=== PATIENT | female | born 1950 | race Caucasian/White ===

== ENCOUNTER → 2020-05-23 15:38 | Outpatient (CLI) | payer OTHER, SELFPAY ==
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
--- NOTE | 2020-05-23 | DI.RAD.S_ITS ---
PROCEDURE: XR CERVICAL SPINE 2V OR 3V INDICATIONS: NECK PAIN TECHNIQUE: 3 view(s) of the cervical spine were acquired. COMPARISON: None. FINDINGS: Bones: No fractures or dislocations to the C7-T1 level. The lateral masses of C1 appear intact on the odontoid view. No suspicious bony lesions. Severe degenerative changes are present at C4-5, C5-6, and C6-7 including intervertebral disc space narrowing and osteophytosis. Soft tissues: No prevertebral soft tissue swelling. There are likely carotid artery calcifications which are incompletely characterized. IMPRESSION: 1. Severe degenerative change of the mid and lower cervical spine. No compression deformities. 2. Probable carotid artery calcification. Carotid ultrasound could be used to further characterize findings. Dictated by: Yahaira Cha M.D. on 05/23/2020 at 16:53 Approved by: Yahaira Cha M.D. on 05/23/2020 at 16:54
== END ==
PROVIDERS: PCP Nurse Practitioner; Referring Provider Student in an Organized Health Care Education/Training Program; Visit Provider Student in an Organized Health Care Education/Training Program
DX: M54.2 Cervicalgia (principal); M54.9 Dorsalgia, unspecified; M47.812 Spondylosis without myelopathy or radiculopathy, cervical region; M47.816 Spondylosis without myelopathy or radiculopathy, lumbar region; M47.817 Spondylosis without myelopathy or radiculopathy, lumbosacral region
CPT/HCPCS: 72040; 72072; 72100

== ENCOUNTER → 2020-07-01 13:55 | Outpatient (CLI) | payer OTHER, SELFPAY ==
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
== END ==
PROVIDERS: PCP Internal Medicine; Referring Provider Internal Medicine; Visit Provider Internal Medicine
DX: S13.4XXD Sprain of ligaments of cervical spine, subsequent encounter (principal); M50.31 Other cervical disc degeneration, high cervical region; M48.02 Spinal stenosis, cervical region; M47.812 Spondylosis without myelopathy or radiculopathy, cervical region; X58.XXXD Exposure to other specified factors, subsequent encounter
CPT/HCPCS: 70544; 72141

== ENCOUNTER 2022-01-06 19:47 | Emergency (ER) | payer MEDICARE, SELFPAY ==
[2022-01-06 20:08] VITALS: BP 166/74; PULSE 82; RESP 18; TEMP 36.7; O2SAT 100; BMI 23.6
--- NOTE | 2022-01-06 20:11 | DI.RAD.S_ITS ---
PROCEDURE: XR WRIST LT MIN 3V INDICATIONS: fall TECHNIQUE: 4 views of the wrist were acquired. COMPARISON: None. FINDINGS: Bones: There is a mildly comminuted fracture of the distal radius with mild impaction and dorsal angulation. Fracture extends to the radiocarpal and distal radioulnar joints. There is also mildly displaced fracture through the distal ulnar diaphysis. Scaphoid view: The scaphoid appears intact. Soft tissues: No suspicious soft tissue calcifications. IMPRESSION: 1. Mildly comminuted fracture of the distal radius with mild impaction and dorsal angulation. Intra-articular extension demonstrated to the radiocarpal and distal radioulnar joints. 2. Mildly displaced distal ulnar shaft fracture. Dictated by: Ryan Carlisle M.D. on 01/06/2022 at 21:05 Approved by: Ryan Carlisle M.D. on 01/06/2022 at 21:07
[2022-01-06] MEDS: HYDROCODONE/ACET 5/325 TABLET 1 TAB PO (20:22)
[2022-01-07] VITALS (42 sets, daily range): BP systolic 131–180; BP diastolic 67–101; PULSE 69–97; RESP 19–77; O2SAT 88–100
--- NOTE | 2022-01-07 00:24 | ED.UPPEXIN ---
HPI - Extremity Injury (Upper) General Chief Complaint: Extremity Injury, Upper Stated Complaint: FALL LEFT WRIST INJURY Time Seen by Provider: 01/06/22 20:12 Source: patient Mode of arrival: Wheelchair Limitations: no limitations History of Present Illness HPI narrative: This is a 71-year-old female comes emergency department with complaint of a ground level fall. Patient was trying to keep raccoon's out of her trash when she was startled and fell with her arm outstretched. Patient states that she had immediate pain and obvious deformity. She has difficulty moving her fingers. She has sensation in all 5 fingers. She has some abrasions on her other hand but denies any other injuries. She denies hitting her head. She denies any daily medications besides vitamins. She has had a lower extremity surgery in the past. She denies other medical issues. No known drug allergies. No tobacco, alcohol or illicit. Her tetanus is Related Data Previous Rx's Medication Instructions Recorded oxycodone 5 mg tablet 5 mg PO Q6H PRN #20 tab 01/07/22 Allergies Allergy/AdvReac Type Severity Reaction Status Date / Time No Known Drug Allergies Allergy Verified 01/06/22 20:10 Review of Systems Review of Systems ROS Unobtainable: All systems reviewed & are unremarkable except as noted in HPI and below Patient History Social History Smoking Status: Never smoker Smoking Status: Never smoker alcohol intake frequency: 0-2 drinks per day Substance Use Type: does not use Exam Narrative Exam Narrative: GENERAL: Alert and oriented x three, female in mild distress HEENT: Head normocephalic, atraumatic, EOMI, pupils reactive, face symmetric, moist mucous membranes, NECK: Supple, full range of motion CARDIOVASCULAR: Regular rate and rhythm without murmurs, rubs or gallops. RESPIRATORY: Breath sounds equal bilaterally, no wheezes rales or rhonchi. ABDOMEN: Soft, nontender. Normoactive bowel sounds all 4 quadrants. No guarding or rebound, rigidity, no mass : No CVA tenderness EXTREMITIES: Patient has obvious deformity of the left wrist, patient has abrasion over the wrist on the volar side. Patient has sensation in all 5 fingers with cap refill less than 2 seconds in all 5 fingers the left hand. She has difficulty with extension of fingers 3 through 5. She is able to extend and flex fingers 1 and 2. Patient does have a hematoma. Neurovascularly intact. 2+ radial pulse. NEUROLOGICAL: Cranial nerves II through XII grossly intact. Moving all extremities SKIN: Warm, dry, no petechiae, no rashes or lesions. Initial Vital Signs Initial Vital Signs: Vital Signs Temperature 98.1 F 01/06/22 20:08 Pulse Rate 82 01/06/22 20:08 Respiratory Rate 18 01/06/22 20:08 Blood Pressure 166/74 H 01/06/22 20:08 Pulse Oximetry 100 01/06/22 20:08 Procedures Orthopedic Fracture Reduction Fracture #1: Time of procedure: 03:10 Time Out Performed: Yes Side: left Fracture Reduction Location: radius and ulna Analgesia: procedural sedation Technique: direct manipulation and traction/counter-traction Post-reduction neuro exam: other (improved flexion/extension but still decreased extension) Post-reduction vascular exam: intact Splint Applied: Yes Patient Tolerated Procedure: Well Orthopedic Splinting/Casting Injury #1: Time of procedure: 03:10 Side: left Upper Extremity Injury Location: wrist Upper Extremity Immobilizer: sugar tong splint Post splinting neuro exam: other Post splinting vascular exam: intact Placed by: Provider Procedural Sedation Time of procedure: 03:10 Consent signed: Yes Time out performed: Yes Indication: fracture/dislocation reduction ASA Class: II Mallampati Airway Classification: Class II Time of Last PO Intake: 12:00 Preparation: school bus monitor applied, pulse oximeter, capnometry used, supplemental O2 applied, suction/airway equipment at bedside and IV secured IV Propofol dose (mg): 100 Intraservice time/total sedation time (min): 10 ED Sedation Level: Moderate (Concious) Patient Tolerated Procedure: Well Complications: hypoventilation Interventions: Airway repositioned and Oxygen applied Course Orders Ordered: ED Orders 01/07/22 00:30 COVID19 -Nasal RAPID/Pre-Proc Stat 01/07/22 03:21 XR wrist LT 2V Stat Discontinued Medications Hydrocodone Bitart/Acetaminophen (Hydrocodone/Acet 5/325 Tablet) 1 tab PO NOW ONE Stop: 01/06/22 20:13 Last Admin: 01/06/22 20:22 Dose: 1 tab Documented by: JULIAN Morphine Sulfate (Morphine 4 Mg/Ml Inj) 4 mg IV NOW ONE Stop: 01/07/22 03:28 Last Admin: 01/07/22 03:36 Dose: 4 mg Documented by: RIK Morphine Sulfate (Morphine 4 Mg/Ml Inj) 4 mg IV NOW ONE Stop: 01/07/22 03:52 Last Admin: 01/07/22 03:59 Dose: 4 mg Documented by: BARBRA Oxycodone/Acetaminophen (Oxycodone/Apap 5/325 Prepack) 1 bottle MISC SEEINSTR ONE Stop: 01/07/22 04:13 Last Admin: 01/07/22 06:15 Dose: 1 bottle Documented by: BARBRA Propofol (Propofol 200 Mg/20 Ml Vial) 65 mg 1 mg/kg (65 mg) IV NOW ONE Stop: 01/07/22 00:25 Last Admin: 01/07/22 03:34 Dose: 65 mg Documented by: RIK Consultations Consultation #1: Dr. Sparks, reviewed prelim images. Recommends reduction and will re-evaluate post films for final decision. Consultation #2: Dr. Sparks, reviewed post reduction images. Appropriate reduction. Patient appropriate for discharge we did review that patient has not been able to fully extend fingers 3-5 although do it improve after reduction. Happy to see patient in the office. And will re-evaluate with imaging in about a week to see if patient will need repair or will continue to remodel appropriately. Time: 03:52 Vital Signs Vital signs: Vital Signs - 8 hr 01/07/22 02:00 01/07/22 02:30 01/07/22 02:56 Pulse Rate 88 90 97 H Respiratory Rate 19 Blood Pressure 180/85 H Pulse Oximetry 97 100 100 01/07/22 03:00 01/07/22 03:05 01/07/22 03:10 Pulse Rate 87 88 95 H Respiratory Rate 23 Blood Pressure 168/89 H 168/81 H Pulse Oximetry 100 100 100 01/07/22 03:15 01/07/22 03:20 01/07/22 03:25 Pulse Rate 87 83 88 Respiratory Rate Blood Pressure 143/71 H 162/77 H 157/77 H Pulse Oximetry 88 L 99 99 01/07/22 03:30 01/07/22 03:35 01/07/22 03:40 Pulse Rate 83 79 79 Respiratory Rate 20 24 22 Blood Pressure 155/72 H 154/76 H 141/75 H Pulse Oximetry 99 99 99 01/07/22 03:45 01/07/22 03:50 01/07/22 03:55 Pulse Rate 96 H 87 85 Respiratory Rate 42 H 20 20 Blood Pressure 157/67 H 161/78 H 163/83 H Pulse Oximetry 99 99 99 01/07/22 04:00 01/07/22 04:05 01/07/22 04:10 Pulse Rate 75 72 69 Respiratory Rate 32 H 20 20 Blood Pressure 159/76 H 162/73 H 165/74 H Pulse Oximetry 99 97 99 01/07/22 04:14 01/07/22 04:15 01/07/22 04:20 Pulse Rate 88 73 75 Respiratory Rate 20 48 H 28 H Blood Pressure 161/77 H 163/77 H Pulse Oximetry 93 94 01/07/22 04:25 01/07/22 04:30 01/07/22 04:35 Pulse Rate 78 79 80 Respiratory Rate 25 H 37 H 49 H Blood Pressure 152/72 H 155/70 H 151/72 H Pulse Oximetry 90 L 92 93 01/07/22 04:40 01/07/22 04:45 01/07/22 04:50 Pulse Rate 79 79 79 Respiratory Rate 54 H 59 H 77 H Blood Pressure 149/69 H 147/70 H 149/71 H Pulse Oximetry 94 94 95 01/07/22 04:55 01/07/22 05:00 01/07/22 05:05 Pulse Rate 79 79 81 Respiratory Rate 59 H 62 H 43 H Blood Pressure 150/74 H 157/74 H 158/75 H Pulse Oximetry 96 95 95 01/07/22 05:10 01/07/22 05:15 01/07/22 05:20 Pulse Rate 85 86 85 Respiratory Rate 48 H 37 H 26 H Blood Pressure 151/73 H 150/79 H 144/75 H Pulse Oximetry 96 96 96 01/07/22 05:25 01/07/22 05:30 01/07/22 05:35 Pulse Rate 88 85 91 H Respiratory Rate 28 H 23 27 H Blood Pressure 165/77 H 146/68 H 150/75 H Pulse Oximetry 96 96 96 01/07/22 05:40 01/07/22 05:45 01/07/22 05:46 Pulse Rate 91 H 86 87 Respiratory Rate 30 H 26 H 42 H Blood Pressure 158/80 H 131/80 Pulse Oximetry 97 97 97 01/07/22 05:48 01/07/22 05:51 01/07/22 05:55 Pulse Rate 80 Respiratory Rate 20 Blood Pressure 131/80 160/101 H 157/74 H Pulse Oximetry 98 MDM - Extremity Injury (Upper) Lab Data Labs: Lab Results 01/07/22 Range/Units 00:30 SARS-CoV-2 (PCR) Negative (Negative) Point of Care Testing Test Results Not applicable Imaging Data Extremity x-ray #1: Radiologist's Impression: [address] [address] XRay Report Signed Patient: Bhavani Moses MR#: [id number] : 1950 Acct:[id number] Age/Sex: 71 / F Date of Service: 01/06/22 Loc: ED Accession Number: [id number] ?? Procedure: XR wrist LT min 3V Ordering Provider: Janet Reyes D.O. PROCEDURE:? XR WRIST LT MIN 3V ? INDICATIONS: fall ? TECHNIQUE:? 4 views of the wrist were acquired.? ? COMPARISON:? None. ? FINDINGS:? ? Bones:? There is a mildly comminuted fracture of the distal radius with mild impaction and dorsal angulation.? Fracture extends to the radiocarpal and distal radioulnar joints. ?There is also mildly displaced fracture through the distal ulnar diaphysis. ? Scaphoid view:? The scaphoid appears intact. ? Soft tissues:? No suspicious soft tissue calcifications.? ? IMPRESSION:? ? 1. Mildly comminuted fracture of the distal radius with mild impaction and dorsal angulation.? Intra-articular extension demonstrated to the radiocarpal and distal radioulnar joints. ? 2. Mildly displaced distal ulnar shaft fracture. ? ? Dictated by: Ryan Calrisle M.D. on 01/06/2022 at 21:05 ? ? Approved by: Ryan Carlisle M.D. on 01/06/2022 at 21:07? Extremity x-ray #2: My Impression: prelim-moderate reduction. [facility] Narrative Medical decision making narrative: This is a 71-year-old female who comes to the emergency department after ground level fall with obvious deformity to the wrist showing a distal radial ulnar fracture with some intra-articular involvement. Patient does have some difficulty flexing and extending her fingers particularly 3, 4 and 5 of the left hand. She did have some improvement of movement after reduction for patient having neurovascularly intact with normal sensation cap refill less than 5 seconds in all 5 fingers and 2+ radial pulse. Patient and I discussed the conscious sedation verses hematoma block but felt would likely obtain better alignment with procedural sedation patient preferred this as well. Reviewed all risks and benefits with the patient and she consented verbally as well as written. Patient had improvement of alignment although not complete reduction reviewed films with Orthopedic surgery prior to and post procedural sedation. They are happy with current reduction reviewed patient's changes with movement of the fingers. No see patient in the office this week, plan for splint, sling and pain control with return precautions. Patient had he splint adjusted by myself postprocedural sedation and this did improve some pain and was given additional dose of pain medication. Discharge Plan Departure Patient Disposition: Home Clinical Impression: Closed fracture distal radius and ulna Instructions: DI for Wrist Fracture Activity Restrictions/Additional Instructions: Follow-up with orthopedic surgery in the next week. Call today to set up an appointment. Referral number is included below. They have office is in [facility]. You may take Tylenol up to a 1000 mg every 6 hours. You may also take oxycodone 1-2 tablets every 6 hours needed for pain. This medication can make you sleepy do not drive, perform hazardous activities or make any major decisions while taking it. This medication will make you constipated please take a stool softener once to twice daily until stools are soft and regular. Prescription sent to [facility] Splint Care: Keep splint clean and dry. Elevated affected body part to decrease swelling. OK to use ice pack on the affected body part. Use for 15-20 minutes each time, for 5-6x per day. If you develop worsening pain, numbness, tingling, discoloration of the affected body part, loosen the splint by loosening the LALA wrap, and either see your doctor for an urgent re-assessment, or return to the Emergency Department. Return to the Emergency Department for any new or worsening symptoms. Prescriptions: New oxycodone 5 mg tablet 5 mg PO Q6H PRN (Reason: pain) Qty: 20 0RF Referrals: Susan Sparks MD [Physician] - Laura Delgado MD [Primary Care Provider] -
--- NOTE | 2022-01-07 00:40 | PC.NURSE ---
Silver color ring with black stone removed from left finger, placed in specimen cup, and placed in pt's purse.
[2022-01-07 00:55] LABS: COVID19 -Nasal RAPID Negative (Negative)
--- NOTE | 2022-01-07 03:21 | DI.RAD.S_ITS ---
PROCEDURE: XR WRIST LT 2V INDICATIONS: post reduction TECHNIQUE: 2 views of the wrist were acquired. COMPARISON: [facility], CR, XR WRIST LT MIN 3V, 01/06/2022, 20:02. FINDINGS: Bones: Casted views. Improved alignment of a markedly comminuted impacted distal radius fracture extending to the articular surface. Comminuted distal ulnar fracture also noted, in near anatomic alignment. Soft tissues: No suspicious soft tissue calcifications. IMPRESSION: Slight improved alignment. Distal radius and ulna fractures as described above. Comment: Final report is concordant with preliminary interpretation provided by [facility]. Dictated by: Tyler Lassiter M.D. on 01/07/2022 at 8:39 Approved by: Tyler Lassiter M.D. on 01/07/2022 at 8:40
[2022-01-07] MEDS: propofoL 200 MG/20 ML VIAL 65 MG IV (03:34)
[2022-01-07] MEDS: MORPHINE 4 MG/ML INJ IV ×2 (03:36→03:59)
[2022-01-07] MEDS: OXYCODONE/APAP 5/325 PREPACK 1 BOTTLE MISC (06:15)
--- NOTE | 2022-01-07 08:20 | PC.NURSE ---
pt faviane arrived at 0745
== END 2022-01-07 07:45 | disposition home or self-care (01) ==
PROVIDERS: Emergency Provider Emergency Medicine; PCP Internal Medicine
DX: S52.502A Unspecified fracture of the lower end of left radius, initial encounter for closed fracture (principal); S52.602A Unspecified fracture of lower end of left ulna, initial encounter for closed fracture; W19.XXXA Unspecified fall, initial encounter; Z20.822 Contact with and (suspected) exposure to COVID-19
CPT/HCPCS: 25605; 36415; 73100; 73110; 87635; 96374; 99152; 99284; 99285; C9803; J2270; J2704

== ENCOUNTER → 2022-06-02 15:54 | Outpatient (CLI) | payer MEDICARE, SELFPAY ==
--- NOTE | 2022-06-02 15:58 | DI.MG.S_ITS ---
BILATERAL DIGITAL SCREENING MAMMOGRAM 3D/2D WITH CAD: 06/02/2022 CLINICAL: Routine screening. Baseline by default. No prior exams were available for comparison. There are scattered areas of fibroglandular density in both breasts (category b / 25%-50% glandular tissue). Current study was also evaluated with a Computer Aided Detection (CAD) system. No significant masses, calcifications, or other findings are seen in either breast. IMPRESSION: NEGATIVE There is no mammographic evidence of malignancy. A 1 year screening mammogram is recommended. Based on the Tyrer Cuzick model (a risk assessment model) the patient's lifetime risk is 3.7% and her 10 year risk is 3.0%. According to the ACR, ACS, and NCCN guidelines, an annual breast MRI exam along with mammogram is recommended if the patient's lifetime risk is 20% or greater. This exam was interpreted at Station ID: [id number]. NOTE: For mammograms, a report in lay terms will be sent to the patient. Approximately 15% of breast malignancies will not be visualized mammographically. In the management of a palpable breast mass, a negative mammogram must not discourage biopsy of a clinically suspicious lesion. Electronically Signed By: See Alatorre M.D., jr/gino:06/03/2022 12:46:53 letter sent: Normal Exam ACR BI-RADS Category 1: Negative [id number]
== END ==
PROVIDERS: PCP Family Medicine; Referring Provider Family Medicine; Visit Provider Family Medicine
DX: Z12.31 Encounter for screening mammogram for malignant neoplasm of breast (principal)
CPT/HCPCS: 77063; 77067

== ENCOUNTER → 2023-09-08 07:05 | Outpatient (CLI) | payer MEDICARE, SELFPAY ==
[2023-09-08 08:15] LABS: Add Manual Diff / Slide Review NO; Basophils Absolute Auto 100 /uL (0-100); Basophils Percent Auto 1.4 % (0-2); Eosinophils Absolute Auto 200 /uL (0-450); Eosinophils Percent Auto 3.7 % (2-4); Hematocrit 35.1 % (36-46); Hemoglobin 11.9 g/dL (12.0-16.0); Lymphocytes Absolute Auto 1300 /uL (1100-4500); Mean Corpuscular HGB Conc 33.7 % (30-36); Mean Corpuscular Hemoglobin 30.3 PG (26-34); Mean Corpuscular Volume 89.8 fL (80-100); Monocytes Absolute Auto 500 /uL (0-900); Monocytes Percent Auto 10.2 % (3-14); Neutrophils Absolute Auto 2600 /uL (1500-7000); Neutrophils Percent Auto 56.7 % (50-75); Platelet Count 243 X10^3/uL (150-400); Red Blood Cell Count 3.91 X10^6/uL (4.0-5.2); Red Cell Distribution Width 14.1 % (11.6-14.8); White Blood Cell Count 4.7 X10^3/uL (4.5-11.0)
[2023-09-08 08:32] LABS: Alanine Aminotransferase 11 IU/L (<35); Albumin 4.1 g/dL (3.5-5.0); Albumin Globulin Ratio 1.5 (1.0-2.8); Alkaline Phosphatase 91 U/L (38-126); Aspartate Aminotransferase 18 IU/L (14-36); BUN Creatinine Ratio 22.2 (6-22); Bilirubin Total 0.6 mg/dL (0.2-1.3); Blood Urea Nitrogen 14 mg/dL (7-17); Calcium 9.8 mg/dL (8.4-10.2); Carbon Dioxide 28 mmol/L (22-32); Chloride 98 mmol/L (98-107); Cholesterol 192 mg/dL (140-199); Estimated Glomerular Filt Rate > 60 mL/min (>60); Globulin 2.8 g/dL (1.7-4.1); Glucose 89 mg/dL (80-110); HDL Cholesterol 91 mg/dL (40-60); HEMOLYSIS < 15 (0-50); LDL Cholesterol Calculated 92 mg/dL (<100); Potassium 4.3 mmol/L (3.4-5.1); Sodium 134 mmol/L (137-145); Total Protein 6.9 g/dL (6.3-8.2); Triglycerides 44 mg/dL (35-150)
[2023-09-08 09:03] LABS: Thyroid Stimulating Hormone 3.72 uIU/mL (0.47-4.68)
[2023-09-08 09:20] LABS: Vitamin B12 449 pg/mL (239-931)
== END ==
PROVIDERS: PCP Nurse Practitioner Family; Referring Provider Nurse Practitioner Family; Visit Provider Nurse Practitioner Family
DX: E53.9 Vitamin B deficiency, unspecified (principal); F03.911 Unspecified dementia, unspecified severity, with agitation; R03.0 Elevated blood-pressure reading, without diagnosis of hypertension; R42 Dizziness and giddiness
CPT/HCPCS: 36415; 80053; 80061; 82607; 84443; 85025

== ENCOUNTER → 2024-05-15 14:13 | Outpatient (CLI) | payer MEDICARE, SELFPAY ==
[2024-05-15 14:56] LABS: Add Manual Diff / Slide Review NO; Basophils Absolute Auto 100 /uL (0-100); Basophils Percent Auto 0.8 % (0-2); Eosinophils Absolute Auto 200 /uL (0-450); Eosinophils Percent Auto 2.5 % (2-4); Hematocrit 36.6 % (36-46); Hemoglobin 12.5 g/dL (12.0-16.0); Lymphocytes Absolute Auto 1800 /uL (1100-4500); Lymphocytes Percent Auto 20.7 % (25-40); Mean Corpuscular HGB Conc 34.1 % (30-36); Mean Corpuscular Hemoglobin 31.3 PG (26-34); Mean Corpuscular Volume 91.8 fL (80-100); Monocytes Absolute Auto 700 /uL (0-900); Neutrophils Absolute Auto 5800 /uL (1500-7000); Platelet Count 325 X10^3/uL (150-400); Red Blood Cell Count 3.99 X10^6/uL (4.0-5.2); Red Cell Distribution Width 13.3 % (11.6-14.8); White Blood Cell Count 8.6 X10^3/uL (4.5-11.0)
[2024-05-15 15:39] LABS: Alanine Aminotransferase 14 IU/L (<35); Albumin 4.3 g/dL (3.5-5.0); Albumin Globulin Ratio 1.7 (1.0-2.8); Alkaline Phosphatase 62 U/L (38-126); Aspartate Aminotransferase 18 IU/L (14-36); BUN Creatinine Ratio 15.7 (6-22); Bilirubin Total 0.2 mg/dL (0.2-1.3); Blood Urea Nitrogen 11 mg/dL (7-17); Calcium 9.8 mg/dL (8.4-10.2); Carbon Dioxide 26 mmol/L (22-32); Chloride 100 mmol/L (98-107); Estimated Glomerular Filt Rate > 60 mL/min (>60); Globulin 2.6 g/dL (1.7-4.1); Glucose 117 mg/dL (80-110); HEMOLYSIS < 15 (0-50); Potassium 4.1 mmol/L (3.4-5.1); Sodium 134 mmol/L (137-145); Total Protein 6.9 g/dL (6.3-8.2)
[2024-05-15 16:07] LABS: Thyroid Stimulating Hormone 1.22 uIU/mL (0.47-4.68)
[2024-05-15 16:26] LABS: Vitamin B12 435 pg/mL (239-931)
== END ==
PROVIDERS: PCP Nurse Practitioner Family; Referring Provider Nurse Practitioner Family; Visit Provider Nurse Practitioner Family
DX: R53.83 Other fatigue (principal)
CPT/HCPCS: 36415; 80053; 82607; 84443; 85025

== ENCOUNTER → 2024-05-25 12:18 | Outpatient (ROUT) | payer MEDICARE, SELFPAY ==
[2024-05-25 12:30] LABS: Appearance Urine UA CLEAR; Bilirubin Urine UA NEGATIVE (NEGATIVE); Color Urine UA YELLOW; Glucose Urine UA NEGATIVE (Negative); Ketones Urine UA NEGATIVE (NEGATIVE); Leukocyte Esterase Urine UA NEGATIVE (NEGATIVE); Nitrite Urine UA NEGATIVE (Negative); Occult Blood Urine UA NEGATIVE (Negative); Protein Urine UA NEGATIVE (Negative); Specific Gravity Urine UA <=1.005 (1.000-1.035); Urobilinogen Urine UA 0.2 E.U./dL (0.2)
[2024-05-25 12:40] LABS: Bacteria Urine None Seen; Culture Indicated Urine Cult Not Indicated; RBC Urine None Seen (0-5/HPF); Squamous Epithelial Cell Urine 0-1 /HPF (0-5/HPF); Urine Volume 10mL (spun); WBC Urine None Seen (0-5/HPF)
== END ==
PROVIDERS: PCP Nurse Practitioner Family; Visit Provider Nurse Practitioner Family
DX: R82.90 Unspecified abnormal findings in urine (principal)
CPT/HCPCS: 81001